=== PATIENT | female | born 1965 | race Caucasian/White ===

== ENCOUNTER 2016-11-05 14:23 | Emergency (ER) | payer BC ==
[2016-11-05] MEDS ORDERED: Sodium Chloride 0.9% 1000 ML 1,000 ML IV STA (15:01)
[2016-11-05] MEDS ORDERED: Zofran 4 MG/2 ML VIAL IV ONE (15:01)
[2016-11-05] MEDS ORDERED: PROTONIX 40 MG IV IV ONE ×2 (15:01→15:12)
[2016-11-05] MEDS ORDERED: Sodium Chloride 0.9% 1000 ML 1,000 ML ONE (15:12)
[2016-11-05] MEDS ORDERED: Zofran 4 MG/2 ML VIAL ONE (15:12)
[2016-11-05 15:21] LABS: BASOPHIL % 0.1 % (0.0-0.4); Granulocytes % 85.7 % (36.0-66.0); Lymphocytes % 9.7 % (24.0-44.0); Mean Cell Volume 92.3 fl (78-100); Mean Corpuscular Hemoglobin 30.6 pg (26-32); Mean Platelet Volume 10.5 fl (6-9.5); Monocytes % 4.5 % (0.0-12.0); Platelet Count 392 K/mm3 (150-450); Red Blood Count 4.67 M/mm3 (4.1-5.4); White Blood Count 15.9 K/mm3 (4.0-10.5)
[2016-11-05 15:33] LABS: ALBUMIN 4.5 g/dL (3.4-5.0); BILIRUBIN,TOTAL 0.9 mg/dL (0.2-1.0); Direct Bilirubin 0.13 MG/DL (0.0-0.2)
[2016-11-05 15:37] LABS: COMPLETE URINE MICROSCOPIC? YES; Collection Type CCMS
--- NOTE | 2016-11-05 16:00 | ERPHSYRPT ---
- History of Present Illness Time Seen by Provider: 11/05/16 15:50 Historian: patient, family Exam Limitations: no limitations Patient Subjective Stated Complaint: vomiting for 15 hours. abd pain since yesterday. small amt diarrhea today. Triage Nursing Assessment: ambulated to room without difficulty. holding abd. skin w/d, color pale. resp nonlabored. vomited times one in er. abd soft nontender Physician History: patient presents with abdominal pain and vomiting. States began having epigastric abdominal pain that started at around 3 PM yesterday. Described pain as sharp, intermittent and localized. She began vomiting at around 12 midnight and has been worsening since then, where patient was dry heaving every 15 minutes. Vomitus initially described as dark brown and since then has turned more bilious. Patient has taken Tums and Pepto-Bismol with minimal relief. States pain is worse with movement and attempted drinking. Patient has also had diarrhea 2. Patient denies any recent illnesses. 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 Patient denies a chest pain, shortness of breath, dizziness or weakness. States she has never had any of these symptoms before. Timing/Duration: hour(s) (24) Activities at Onset: none Quality: sharpness Abdominal Pain Onset Location: epigastric Pain Radiation: no radiation Severity of Pain-Max: moderate Severity of Pain-Current: moderate Modifying Factors: Improves With: movement (worsens) Associated Symptoms: diarrhea, loss of appetite, nausea, vomiting, weakness, No chest pain, No diaphoresis, No fever/chills, No shortness of breath Previous symptoms: no prior history Allergies/Adverse Reactions: No Known Drug Allergies Allergy (Verified 11/05/16 14:34) Home Medications: Diclofenac Sodium [Voltaren] 100 mg PO DAILY 11/05/16 [History] Hx Tetanus, Diphtheria Vaccination/Date Given: No Hx Influenza Vaccination/Date Given: No Hx Pneumococcal Vaccination/Date Given: No - Review of Systems Constitutional: No Fever, No Chills Eyes: No Symptoms Ears, Nose, & Throat: No Symptoms Respiratory: No Cough, No Dyspnea Cardiac: No Chest Pain, No Edema, No Syncope Abdominal/Gastrointestinal: Abdominal Pain, Nausea, Vomiting, Diarrhea, No Hematemesis, No Hematochezia, No Melena Genitourinary Symptoms: No Dysuria Musculoskeletal: No Back Pain, No Neck Pain Skin: No Rash Neurological: No Dizziness, No Focal Weakness, No Sensory Changes Psychological: No Symptoms Endocrine: No Symptoms All Other Systems: Reviewed and Negative - Past Medical History Pertinent Past Medical History: Yes Neurological History: Other Musculoskeletal History: Other - Past Surgical History Past Surgical History: Yes Musculoskeletal: Orthopedic Surgery Female Surgical History: Tubal Ligation - Social History Smoking Status: Never smoker Exposure to second hand smoke: No Drug Use: none Patient Lives Alone: No - Nursing Vital Signs Nursing Vital Signs: Initial Vital Signs Temperature 98.5 F Temperature Source Oral Pulse Rate 92 Respiratory Rate 16 Blood Pressure [Right Arm] 115/71 Pain Intensity 0 - Physical Exam General Appearance: mild distress, alert Eye Exam: PERRL/EOMI, eyes nml inspection Ears, Nose, Throat Exam: normal ENT inspection, pharynx normal, moist mucous membranes Neck Exam: normal inspection, non-tender, supple, full range of motion Respiratory Exam: normal breath sounds, lungs clear, No respiratory distress Cardiovascular Exam: regular rate/rhythm, normal heart sounds Gastrointestinal/Abdomen Exam: soft, tenderness (epigastric/periumbilical area) , No distention, No mass, No guarding Pelvic Exam: not done Back Exam: normal inspection, normal range of motion, No CVA tenderness, No vertebral tenderness Extremity Exam: normal inspection, normal range of motion, pelvis stable Neurologic Exam: alert, oriented x 3, cooperative, normal mood/affect, nml cerebellar function, sensation nml, No motor deficits Skin Exam: normal color, warm, dry SpO2: 97 Oxygen Delivery: Room Air - Course Nursing assessment & vital signs reviewed: Yes EKG Interpreted by Me: RATE (71), Sinus Rhythm, NORMAL AXIS, NORMAL INTERVALS, NORMAL QRS, NORMAL ST-T - CT Exams Abdomen CT Interpretation: Tele-radiologist Report, Other (No free air, ileus vs. enteritis, GB sludge with 9mm stone) Ordered Tests: Active Orders 24 hr Category Date Time Status EKG-ER Only STAT Care 11/05/16 15:01 Active IV Insertion STAT Care 11/05/16 15:01 Active ABDOMEN AND PELVIS W/0 CONTRAS [CT] Stat Exams 11/05/16 16:10 Taken OBSTR/ACUTE ABDOMEN SERIES Stat Exams 11/05/16 15:03 Taken AMYLASE Stat Lab 11/05/16 14:45 Completed CBC W DIFF Stat Lab 11/05/16 14:45 Completed HEPATIC FUNCTION PANEL Stat Lab 11/05/16 14:45 Completed LIPASE Stat Lab 11/05/16 14:45 Completed UA W/ MICROSCOPIC Stat Lab 11/05/16 15:30 Completed Medication Summary Discontinued Medications Generic Name Dose Route Start Last Admin Trade Name Freq PRN Reason Stop Dose Admin Sodium Chloride 1,000 mls @ 999 mls/hr 11/05/16 15:01 11/05/16 15:19 Sodium Chloride 0.9% 1000 Ml IV 11/05/16 16:01 999 mls/hr .Q1H1M STA Administration Sodium Chloride Confirm 11/05/16 15:12 Sodium Chloride 0.9% 1000 Ml Administered 11/05/16 15:13 Dose 1,000 mls @ ud .ROUTE .STK-MED ONE Ondansetron HCl 4 mg 11/05/16 15:01 11/05/16 15:19 Zofran 4 Mg/2 Ml Vial IV 11/05/16 15:02 4 mg STAT ONE Administration Ondansetron HCl Confirm 11/05/16 15:12 Zofran 4 Mg/2 Ml Vial Administered 11/05/16 15:13 Dose 4 mg .ROUTE .STK-MED ONE Pantoprazole Sodium 40 mg 11/05/16 15:01 11/05/16 15:19 Protonix 40 Mg Iv IV 11/05/16 15:02 40 mg STAT ONE Administration Pantoprazole Sodium Confirm 11/05/16 15:12 Protonix 40 Mg Iv Administered 11/05/16 15:13 Dose 40 mg IV .STK-MED ONE Lab/Rad Data: Laboratory Result Diagrams 11/05/16 14:45 Laboratory Results 11/05/16 11/05/16 11/05/16 Range/Units 15:30 14:45 14:45 WBC 15.9 H (4.0-10.5) K/mm3 RBC 4.67 (4.1-5.4) M/mm3 Hgb 14.3 (12.0-16.0) gm/dl Hct 43.1 (35-47) % MCV 92.3 (78-100) fl MCH 30.6 (26-32) pg MCHC 33.2 (32-36) g/dl RDW 13.0 (11.5-14.0) % Plt Count 392 (150-450) K/mm3 MPV 10.5 H (6-9.5) fl Gran % 85.7 H (36.0-66.0) % Lymphocytes % 9.7 L (24.0-44.0) % Monocytes % 4.5 (0.0-12.0) % Eosinophils % 0.0 (0.00-5.0) % Basophils % 0.1 (0.0-0.4) % Basophils # 0.02 (0-0.4) Total Bilirubin 0.9 (0.2-1.0) mg/dL Direct Bilirubin 0.13 (0.0-0.2) MG/DL AST 23 (15-37) U/L ALT 19 (12-78) U/L Alkaline Phosphatase 56 (46-116) U/L Serum Total Protein 8.0 (6.4-8.2) gm/dL Albumin 4.5 (3.4-5.0) g/dL Amylase 76 (25-115) U/L Lipase 208 (73-393) U/L Ur Collection Type CCMS Urine Color YELLOW (YELLOW) Urine Appearance CLEAR (CLEAR) Urine pH 6.0 (5-6) Ur Specific [place] 1.025 (1.005-1.025) Urine Protein 30 (Negative) Urine Glucose (UA) NEGATIVE (NEGATIVE) mg/dL Urine Ketones >=160 (NEGATIVE) Urine Nitrite NEGATIVE (NEGATIVE) Urine Bilirubin NEGATIVE (NEGATIVE) Urine Urobilinogen 0.2 (0-1) mg/dL Urine WBC (Auto) NEGATIVE (NEGATIVE) Urine RBC (Auto) NEGATIVE (0-5) Jonn/ul Urine Microscopic RBC 0-2 (0-2) /HPF Urine Microscopic WBC 0-2 (0-5) /HPF Ur Epithelial Cells MODERATE (FEW) /HPF Urine Mucus MANY (NEGATIVE) /HPF Specimen Received 1530 11/05/16 - Progress Progress: improved Progress Note: 11/05/16 16:18 patient given Protonix, Zofran and IV fluids, which did seem to improve her symptoms. 11/05/16 17:28 Pt. tolerating PO fluids well. Wants to go home. Counseled pt/family regarding: lab results, diagnosis, rad results - Departure Time of Disposition: 17:29 Departure Disposition: Home Clinical Impression: Vomiting, Cholelithiasis Condition: Stable Critical Care Time: No Instructions: Vomiting -- Adult, Abdominal Pain-Adult Additional Instructions: Clear fluids and advance as tolerated. RX: Pepcid/Zofran Return for worse abdominal pain, vomiting, fever, not keeping down fluids/solids , dizziness, weakness or any problems. Prescriptions: Ondansetron [Zofran Odt] 4 mg PO Q6H PRN PRN #10 tab.rapdis PRN Reason: Nausea/Vomiting Famotidine 20 mg [Pepcid 20 MG] 20 mg PO BID #10 tablet
[2016-11-05 16:17] LABS: Epithelial Cells MODERATE /HPF (FEW); Mucus MANY /HPF (NEGATIVE); WBC 0-2 /HPF (0-5)
[2016-11-05 16:45] VITALS: BP 115/71; PULSE 92
[2016-11-05 17:30] VITALS: O2SAT 97
[2016-11-05] MEDS ORDERED: ZOFRAN ODT 4 MG PO PRN (17:48)
[2016-11-05] MEDS ORDERED: ZOFRAN ODT 4 MG ONE (17:51)
--- NOTE | 2016-11-05 20:47 | XRAY ---
Indication: Abdominal pain and vomiting. Comparison: Chest exam December 24, 2014. 2 views of the abdomen demonstrates mild central small bowel synchronous air-fluid leveling, ileus versus enteritis. There is paucity of distal colonic bowel gas for which distal small bowel obstruction not completely excluded. Multiple small gallstones. Solid organs and osseous structures unremarkable. Single PA chest again demonstrates normal heart, lungs, and bony thorax. Impression: 1. Small bowel synchronous air-fluid leveling with paucity of distal colonic bowel gas. Findings may represent ileus versus enteritis. Cannot completely exclude distal small bowel obstruction. 2. Gallstones. 2. Stable normal one view chest.
--- NOTE | 2016-11-05 20:51 | XRAY ---
Indication: Abdominal pain, nausea, and vomiting. Multiple contiguous axial images obtained through the abdomen and pelvis without contrast as ordered. Comparison: None Lung bases are clear. Heart is not enlarged. Noncontrasted stomach and bowel loops appear nonobstructed. Mild fluid distended small bowel loops with synchronous fluid leveling either ileus versus enteritis. Small perihepatic fluid with larger pelvic free fluid that may or may not be related. No walled off fluid collection or free air. Normal-appearing appendix. A few subcentimeter gallstones with sludge. Scattered tiny calcified splenic granulomas. Remaining liver, pancreas, adrenal glands, kidneys, ureters, bladder, uterus, and aorta appear unremarkable for noncontrast exam. Osseous structures intact. Impression: 1. Fluid distended small bowel loops with synchronous fluid leveling, ileus versus enteritis. Free fluid around the liver and in the pelvis may or may not be related. No walled off fluid collection or free air on this noncontrast exam. 2. Incidental gallstones and sludge. Sonogram may yield further information if clinically warranted. CTDI 12.21
== END 2016-11-05 17:58 | disposition home or self-care (01) ==
LOC: ED 14:23
DX: R11.2 Nausea with vomiting, unspecified (principal); K80.20 Calculus of gallbladder without cholecystitis without obstruction
CPT/HCPCS: 36000; 36415; 74022; 74176; 80076; 81000; 82150; 83690; 85025; 93005; 96360; 96374; 96375; 99284; J2405; Q0162

== ENCOUNTER 2017-01-11 12:05 | Day surgery (SDC) | payer BC ==
--- NOTE | 2017-01-10 08:02 | HP ---
DATE OF SURGERY: 01/11/2017 ADMISSION DIAGNOSIS: Symptomatic cholelithiasis. ANTICIPATED PROCEDURE: Laparoscopic cholecystectomy. HISTORY OF PRESENT ILLNESS: PAST MEDICAL HISTORY: ALLERGIES: NONE. MEDICATIONS: Diflucan. PAST SURGICAL HISTORY: Tubal ligation. Hip surgery. SOCIAL HISTORY: Negative. FAMILY HISTORY: Negative. REVIEW OF SYSTEMS: Negative. PHYSICAL EXAMINATION: VITAL SIGNS: Normal. CHEST: Clear. COR: Regular. ABDOMEN: No palpable organomegaly or mass. IMPRESSION: Symptomatic cholelithiasis. PLAN: Laparoscopic cholecystectomy.
[~2017-01-11 12:05] MED LIST: BRIDION 200MG/2ML IV ONE; DIPRIVAN 200 MG/20 ML IV ONE; Lactated Ringers 1,000 ML IV ONE; Quelicin Fliptop 200 MG/10 ML IJ ONE; SUBLIMAZE 100 MCG/2 ML IV ONE; Sensorcaine 0.25% 10 ML ONE; TORAdol 30 mg Injection IJ ONE; Zemuron 100 MG/10 ML IJ ONE; Zofran 4 MG/2 ML VIAL IV ONE
[2017-01-11] MEDS ORDERED: Lactated Ringers 1,000 ML IV SCH (12:30)
[2017-01-11] MEDS ORDERED: Lactated Ringers 1,000 ML IV ONE (12:36)
[2017-01-11] MEDS ORDERED: MEFOXIN 2 GM PREMIX** 2 GM/50 ML ML IV ONE (12:36)
[2017-01-11] MEDS ORDERED: MEFOXIN 2 GM PREMIX** 2 GM/50 ML ML IV SCH (13:00)
[2017-01-11] MEDS ORDERED: MORPHINE SULFATE 2 MG INJ IV PRN (15:24)
[2017-01-11] MEDS ORDERED: NORCO 5/325 MG PO PRN (15:24)
[2017-01-11] MEDS ORDERED: MORPHINE SULFATE 2 MG INJ ONE (15:28)
[2017-01-11] MEDS ORDERED: NORCO 5/325 MG ONE (15:28)
[2017-01-11 15:44] VITALS: O2SAT 99
[2017-01-11] MEDS ORDERED: Zofran 4 MG/2 ML VIAL IV PRN (15:44)
[2017-01-11] MEDS ORDERED: Zofran 4 MG/2 ML VIAL ONE (15:45)
[2017-01-11 16:14] VITALS: BP 124/70; PULSE 66
--- NOTE | 2017-01-12 08:01 | OP ---
SURGERY DATE/TIME: 01/11/2017 1355 PREOPERATIVE DIAGNOSIS: Symptomatic cholelithiasis. POSTOPERATIVE DIAGNOSIS: Symptomatic cholelithiasis. PROCEDURE: Laparoscopic cholecystectomy. SURGEON: Dr. Shipley. ANESTHESIA: General endotracheal tube. COMPLICATIONS: None. CONDITION: Stable. INDICATIONS: A patient with upper abdominal pain. Ultrasound positive. Seen and examined. Procedure discussed in detail and wished to proceed. DESCRIPTION OF PROCEDURE AND FINDINGS: Taken to surgery. General anesthetic, routine prep and drape. Veress needle inserted. Opening pressure of 1, insufflating pressure 14. Four - 5's. Good visualization. Cystic duct defined. Cystic artery defined. Both structures triply clipped and transected. Clips noted to be across and well approximated. Gallbladder rolled out of gallbladder fossa. The gallbladder delivered through upper abdominal port with minimal widening, hole closure device. 0 Vicryl was used. CO2 was ex-sufflated. Skin closed with 4-0 Vicryl and Steri-Strips. The patient tolerated the procedure satisfactorily. Findings discussed with the family in the waiting room.
== END 2017-01-11 16:20 | disposition home or self-care (01) ==
LOC: SDC 12:05
PROVIDERS: ATTEND Surgery
PROC: 0FT44ZZ Resection of Gallbladder, Percutaneous Endoscopic Approach (ICD-10-PCS; principal; 2017-01-11)
DX: K80.20 Calculus of gallbladder without cholecystitis without obstruction (principal)
CPT/HCPCS: 00790; 36415; 88304; J0330; J0694; J1885; J2270; J2405; J2704; J3010; A9270-GY

== ENCOUNTER 2018-05-30 21:41 | Emergency (ER) | payer BC, OTHER ==
--- NOTE | 2018-05-30 22:25 | ERPHSYRPT ---
- History of Present Illness Time Seen by Provider: 05/30/18 22:05 Source: patient, family Exam Limitations: no limitations Patient Subjective Stated Complaint: headache, nausea, vomiting, diarrhea Triage Nursing Assessment: Pt alert and oriented. Skin color normal for race. Lung sounds clear throughout. Bowel sounds present x 4 quadrants. Denies abdominal tenderness. Abdomen soft with no distention. Rates pain 4/10 in right side of head. Physician History: 53 y/o white female with h/o migraine headaches presents with first headache, followed vomiting and diarrhea. usually a tylenol pm controls headache. thinks she may have the "flu". her daughter has similar sx. denies fever. Timing/Duration: today Severity: moderate Associated Symptoms: nausea, vomiting, headaches, No abdominal pain Allergies/Adverse Reactions: prednisolone Adverse Reaction (Verified 05/30/18 22:01) numbness pt states nubmness and facial droop with steroid use Home Medications: Cranberry Fruit Extract [Cranberry] 500 mg PO DAILY 01/05/17 [History] Acetaminophen/Dp-Hydram HCl [Tylenol P.m. Ex-Str Geltab] 1 tab PO QHS 05/30/18 [ History] Hx Tetanus, Diphtheria Vaccination/Date Given: (unsure) Hx Influenza Vaccination/Date Given: No Hx Pneumococcal Vaccination/Date Given: No - Review of Systems Constitutional: No Symptoms Eyes: No Symptoms Ears, Nose, & Throat: No Symptoms Respiratory: No Symptoms, No Cough, No Dyspnea, No Stridor, No Wheezing Abdominal/Gastrointestinal: No Symptoms, Nausea, Vomiting, Diarrhea Genitourinary Symptoms: No Symptoms, No Dysuria, No Frequency, No Hematuria Musculoskeletal: No Symptoms Skin: No Symptoms Neurological: Headache Psychological: No Symptoms Endocrine: No Symptoms Hematologic/Lymphatic: No Symptoms Immunological/Allergic: No Symptoms All Other Systems: Reviewed and Negative - Past Medical History Pertinent Past Medical History: Yes Neurological History: Migraines ENT History: No Pertinent History Cardiac History: No Pertinent History Respiratory History: No Pertinent History Endocrine Medical History: No Pertinent History Musculoskeletal History: No Pertinent History GI Medical History: No Pertinent History History: No Pertinent History Psycho-Social History: No Pertinent History Female Reproductive Disorders: No Pertinent History - Past Surgical History Past Surgical History: Yes Neuro Surgical History: No Pertinent History Cardiac: No Pertinent History Respiratory: No Pertinent History Gastrointestinal: Cholecystectomy Genitourinary: No Pertinent History Musculoskeletal: Other Female Surgical History: Tubal Ligation Other Surgical History: right hip surgery - Social History Smoking Status: Never smoker Exposure to second hand smoke: No Drug Use: none Patient Lives Alone: No - Female History Hx Now: No (post-menopausal) - Nursing Vital Signs Nursing Vital Signs: Initial Vital Signs Temperature 98.3 F 05/30/18 21:57 Pulse Rate 97 H 05/30/18 21:57 Respiratory Rate 18 05/30/18 21:57 Blood Pressure 133/80 05/30/18 21:57 O2 Sat by Pulse Oximetry 97 05/30/18 21:57 Pain Scale Pain Intensity 6 - Physical Exam General Appearance: mild distress, alert, anxiety Eye Exam: PERRL/EOMI, eyes nml inspection Ears, Nose, Throat Exam: normal ENT inspection, moist mucous membranes Neck Exam: normal inspection, non-tender, supple, full range of motion Respiratory Exam: normal breath sounds, lungs clear, airway intact, No chest tenderness, No respiratory distress, No accessory muscle use, No rhonchi, No wheezing, No stridor Cardiovascular Exam: regular rate/rhythm, normal heart sounds, normal peripheral pulses Gastrointestinal/Abdomen Exam: soft, normal bowel sounds, No tenderness, No guarding, No rebound Pelvic Exam: not done Rectal Exam: not done Back Exam: normal inspection, normal range of motion, No CVA tenderness, No vertebral tenderness Extremity Exam: normal inspection Neurologic Exam: alert, oriented x 3, cooperative, 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 Skin Exam: normal color, warm, dry Lymphatic Exam: No adenopathy SpO2 Interpretation: normal SpO2: 97 Oxygen Delivery: Room Air - Course Nursing assessment & vital signs reviewed: Yes Ordered Tests: Active Orders 24 hr Category Date Time Status IV Insertion STAT Care 05/30/18 22:26 Active AMYLASE Stat Lab 05/30/18 22:38 Completed CBC W DIFF Stat Lab 05/30/18 22:38 Completed CMP Stat Lab 05/30/18 22:38 Completed LIPASE Stat Lab 05/30/18 22:38 Completed UA W/RFX UR CULTURE Stat Lab 05/30/18 22:37 Completed Medication Summary Generic Name Dose Route Start Last Admin Trade Name Freq PRN Reason Stop Dose Admin Sodium Chloride 1,000 mls @ 999 mls/hr 05/30/18 23:30 05/30/18 23:35 Sodium Chloride 0.9% 1000 Ml IV 05/31/18 00:30 999 mls/hr .Q1H1M STA Administration Discontinued Medications Generic Name Dose Route Start Last Admin Trade Name Naomie PRN Reason Stop Dose Admin Sodium Chloride 1,000 mls @ 999 mls/hr 05/30/18 22:26 05/30/18 22:50 Sodium Chloride 0.9% 1000 Ml IV 05/30/18 23:26 999 mls/hr .Q1H1M STA Administration Sodium Chloride Confirm 05/30/18 22:41 Sodium Chloride 0.9% 1000 Ml Administered 05/30/18 22:42 Dose 1,000 mls @ ud .ROUTE .STK-MED ONE Sodium Chloride Confirm 05/30/18 23:33 Sodium Chloride 0.9% 1000 Ml Administered 05/30/18 23:34 Dose 1,000 mls @ ud .ROUTE .STK-MED ONE Morphine Sulfate 2 mg 05/30/18 22:27 05/30/18 22:49 Morphine Sulfate 2 Mg Inj IV 05/30/18 22:28 2 mg STAT ONE Administration Morphine Sulfate Confirm 05/30/18 22:41 Morphine Sulfate 2 Mg Inj Administered 05/30/18 22:42 Dose 2 mg .ROUTE .STK-MED ONE Ondansetron HCl 4 mg 05/30/18 22:26 05/30/18 22:49 Zofran 4 Mg/2 Ml Vial IV 05/30/18 22:27 4 mg STAT ONE Administration Ondansetron HCl Confirm 05/30/18 22:40 Zofran 4 Mg/2 Ml Vial Administered 05/30/18 22:41 Dose 4 mg .ROUTE .STK-MED ONE Lab/Rad Data: Laboratory Result Diagrams 05/30/18 22:38 05/30/18 22:38 Laboratory Results 05/30/18 05/30/18 05/30/18 Range/Units 22:47 22:38 22:38 WBC 11.1 H (4.0-10.5) K/mm3 RBC 4.45 (4.1-5.4) M/mm3 Hgb 13.8 (12.0-16.0) gm/dl Hct 41.9 (35-47) % MCV 94.2 (78-100) fl MCH 31.0 (26-32) pg MCHC 32.9 (32-36) g/dl RDW 12.7 (11.5-14.0) % Plt Count 362 (150-450) K/mm3 MPV 10.2 H (6-9.5) fl Gran % 87.6 H (36.0-66.0) % Eos # (Auto) 0 (0-0.5) Absolute Lymphs (auto) 1.04 (1.0-4.6) Absolute Monos (auto) 0.31 (0.0-1.3) Lymphocytes % 9.4 L (24.0-44.0) % Monocytes % 2.8 (0.0-12.0) % Eosinophils % 0.0 (0.00-5.0) % Basophils % 0.2 (0.0-0.4) % Absolute Granulocytes 9.73 H (1.4-6.9) Basophils # 0.02 (0-0.4) Sodium 140 (137-145) mmol/L Potassium 4.2 (3.5-5.1) mmol/L Chloride 104 (98-107) mmol/L Carbon Dioxide 23 (22-30) mmol/L Anion Gap 18.0 H (5-15) MEQ/L BUN 18 H (7-17) mg/dL Creatinine 0.55 (0.52-1.04) mg/dL Estimated GFR > 60.0 ML/MIN Glucose 126 H (74-106) mg/dL Calcium 10.4 H (8.4-10.2) mg/dL Total Bilirubin 0.70 (0.2-1.3) mg/dL AST 27 (14-36) U/L ALT 18 (0-35) U/L Alkaline Phosphatase 59 (38-126) U/L Serum Total Protein 7.7 (6.3-8.2) g/dL Albumin 5.0 (3.5-5.0) g/dL Amylase 69 (30-110) U/L Lipase 162 (23-300) U/L Urine Color (YELLOW) Urine Appearance (CLEAR) Urine pH (5-6) Ur Specific [place] (1.005-1.025) Urine Protein (Negative) Urine Ketones (NEGATIVE) Urine Blood (0-5) Jonn/ul Urine Nitrite (NEGATIVE) Urine Bilirubin (NEGATIVE) Urine Urobilinogen (0-1) mg/dL Ur Leukocyte Esterase (NEGATIVE) Urine WBC (Auto) (0-5) /HPF Urine RBC (Auto) (0-2) /HPF U Epithel Cells (Auto) (FEW) /HPF Urine Bacteria (Auto) (NEGATIVE) /HPF Urine Culture Reflexed (NO) Urine Glucose (NEGATIVE) mg/dL Influenza Type A Ag NEGATIVE (NEGATIVE) Influenza Type B Ag NEGATIVE (NEGATIVE) RSV (PCR) NEGATIVE (Negative) 05/30/18 Range/Units 22:37 WBC (4.0-10.5) K/mm3 RBC (4.1-5.4) M/mm3 Hgb (12.0-16.0) gm/dl Hct (35-47) % MCV (78-100) fl MCH (26-32) pg MCHC (32-36) g/dl RDW (11.5-14.0) % Plt Count (150-450) K/mm3 MPV (6-9.5) fl Gran % (36.0-66.0) % Eos # (Auto) (0-0.5) Absolute Lymphs (auto) (1.0-4.6) Absolute Monos (auto) (0.0-1.3) Lymphocytes % (24.0-44.0) % Monocytes % (0.0-12.0) % Eosinophils % (0.00-5.0) % Basophils % (0.0-0.4) % Absolute Granulocytes (1.4-6.9) Basophils # (0-0.4) Sodium (137-145) mmol/L Potassium (3.5-5.1) mmol/L Chloride (98-107) mmol/L Carbon Dioxide (22-30) mmol/L Anion Gap (5-15) MEQ/L BUN (7-17) mg/dL Creatinine (0.52-1.04) mg/dL Estimated GFR ML/MIN Glucose (74-106) mg/dL Calcium (8.4-10.2) mg/dL Total Bilirubin (0.2-1.3) mg/dL AST (14-36) U/L ALT (0-35) U/L Alkaline Phosphatase (38-126) U/L Serum Total Protein (6.3-8.2) g/dL Albumin (3.5-5.0) g/dL Amylase (30-110) U/L Lipase (23-300) U/L Urine Color YELLOW (YELLOW) Urine Appearance SLIGHTLY CLOUDY (CLEAR) Urine pH 5.0 (5-6) Ur Specific [place] 1.031 (1.005-1.025) Urine Protein 100 (Negative) Urine Ketones MODERATE (NEGATIVE) Urine Blood NEGATIVE (0-5) Jonn/ul Urine Nitrite NEGATIVE (NEGATIVE) Urine Bilirubin NEGATIVE (NEGATIVE) Urine Urobilinogen NORMAL (0-1) mg/dL Ur Leukocyte Esterase NEGATIVE (NEGATIVE) Urine WBC (Auto) 0-2 (0-5) /HPF Urine RBC (Auto) 0-2 (0-2) /HPF U Epithel Cells (Auto) MODERATE (FEW) /HPF Urine Bacteria (Auto) RARE (NEGATIVE) /HPF Urine Culture Reflexed NO (NO) Urine Glucose NEGATIVE (NEGATIVE) mg/dL Influenza Type A Ag (NEGATIVE) Influenza Type B Ag (NEGATIVE) RSV (PCR) (Negative) - Progress Progress: improved, re-examined Progress Note: 05/30/18 23:38 pt states she is feeling better. Counseled pt/family regarding: lab results, diagnosis, need for follow-up - Departure Time of Disposition: 23:38 Departure Disposition: Home Clinical Impression: Migraine, Vomiting, Dehydration Condition: Stable Critical Care Time: No Referrals: AGUILA BURCH [Primary Care Provider] - Additional Instructions: drink plenty of fluids. follow up with primary doctor for further management. Prescriptions: Ondansetron HCl [Zofran] 4 mg PO TID PRN #10 tablet PRN Reason: Nausea/Vomiting
[2018-05-30] MEDS ORDERED: Zofran 4 MG/2 ML VIAL IV ONE (22:26)
[2018-05-30] MEDS ORDERED: Sodium Chloride 0.9% 1000 ML 1,000 ML IV STA ×2 (22:26→23:30)
[2018-05-30] MEDS ORDERED: MORPHINE SULFATE 2 MG INJ IV ONE (22:27)
[2018-05-30] MEDS ORDERED: Zofran 4 MG/2 ML VIAL ONE (22:40)
[2018-05-30 22:41] LABS: BASOPHIL % 0.2 % (0.0-0.4); Basophil (Absolute #) 0.02 (0-0.4); Eosinophil (Absolute #) 0 (0-0.5); Granulocyte Absolute (ANC) 9.73 (1.4-6.9); Granulocytes % 87.6 % (36.0-66.0); Hematocrit 41.9 % (35-47); Hemoglobin 13.8 gm/dl (12.0-16.0); Lymphocyte (Absolute #) 1.04 (1.0-4.6); Lymphocytes % 9.4 % (24.0-44.0); Mean Cell Volume 94.2 fl (78-100); Mean Corpuscular Hgb Concent. 32.9 g/dl (32-36); Mean Platelet Volume 10.2 fl (6-9.5); Monocyte (Absolute #) 0.31 (0.0-1.3); Monocytes % 2.8 % (0.0-12.0); Platelet Count 362 K/mm3 (150-450); Red Blood Count 4.45 M/mm3 (4.1-5.4); Red Cell Distribution Width 12.7 % (11.5-14.0); White Blood Count 11.1 K/mm3 (4.0-10.5)
[2018-05-30] MEDS ORDERED: MORPHINE SULFATE 2 MG INJ ONE (22:41)
[2018-05-30] MEDS ORDERED: Sodium Chloride 0.9% 1000 ML 1,000 ML ONE ×2 (22:41→23:33)
[2018-05-30 22:46] LABS: ALKALINE PHOSPHATASE 59 U/L (38-126); AMYLASE 69 U/L (30-110); BLOOD UREA NITROGEN 18 mg/dL (7-17); CHLORIDE 104 mmol/L (98-107); Calcium 10.4 mg/dL (8.4-10.2); Carbon Dioxide 23 mmol/L (22-30); Creatinine 1 0.55 mg/dL (0.52-1.04); Glucose 126 mg/dL (74-106); LIPASE 162 U/L (23-300); Potassium 4.2 mmol/L (3.5-5.1); SGOT/AST 27 U/L (14-36); SGPT/ALT 18 U/L (0-35); SODIUM 140 mmol/L (137-145); Total Protein 7.7 g/dL (6.3-8.2)
[2018-05-30 22:54] LABS: Appearance SLIGHTLY CLOUDY (CLEAR); Glucose NEGATIVE (NEGATIVE); Leukocyte Esterase NEGATIVE (NEGATIVE); Nitrite NEGATIVE (NEGATIVE); Protein,Urine Dip 100 (Negative); Specific Gravity 1.031 (1.005-1.025)
[2018-05-30 22:55] LABS: Bilirubin NEGATIVE (NEGATIVE); Blood NEGATIVE Ery/ul (0-5); Ketones MODERATE (NEGATIVE); Urobilinogen NORMAL mg/dL (0-1)
[2018-05-30 23:22] LABS: INFLUENZA A NEGATIVE (NEGATIVE); INFLUENZA B NEGATIVE (NEGATIVE); RESPIRATORY SYNCTIAL VIRUS NEGATIVE (Negative)
[2018-05-31 00:51] VITALS: BP 124/77; PULSE 84; O2SAT 98
== END 2018-05-31 00:51 | disposition home or self-care (01) ==
LOC: ED 21:41
DX: G43.909 Migraine, unspecified, not intractable, without status migrainosus (principal); E86.0 Dehydration; R11.2 Nausea with vomiting, unspecified; Z79.899 Other long term (current) drug therapy
CPT/HCPCS: 36000; 36415; 80053; 81001; 82150; 83690; 85025; 87631; 96360; 96361; 96374; 96375; 99284; J2270; J2405